=== PATIENT | female | born 1985 | race Caucasian/White ===

== ENCOUNTER → 2019-06-09 08:55 | Outpatient (CLI) | payer OTHER, SELFPAY ==
[2019-06-09 09:41] LABS: Add Manual Diff / Slide Review NO; Basophils Absolute Auto 100 /uL (0-100); Basophils Percent Auto 0.5 % (0-2); Eosinophils Absolute Auto 200 /uL (0-450); Eosinophils Percent Auto 2.5 % (2-4); Hematocrit 39.4 % (36-46); Hemoglobin 13.4 g/dL (12.0-16.0); Lymphocytes Absolute Auto 1800 /uL (1100-4500); Lymphocytes Percent Auto 18.4 % (25-40); Mean Corpuscular Hemoglobin 27.9 PG (26-34); Monocytes Absolute Auto 700 /uL (0-900); Monocytes Percent Auto 7.1 % (3-14); Neutrophils Absolute Auto 7000 /uL (1500-7000); Neutrophils Percent Auto 71.5 % (50-75); Platelet Count 319 X10^3/uL (150-400); Red Cell Distribution Width 13.4 % (11.6-14.8); White Blood Cell Count 9.8 X10^3/uL (4.5-11.0)
[2019-06-09 09:56] LABS: Appearance Urine UA CLEAR; Bilirubin Urine UA NEGATIVE (NEGATIVE); Color Urine UA YELLOW; Glucose Urine UA NEGATIVE (Negative); Ketones Urine UA NEGATIVE (NEGATIVE); Leukocyte Esterase Urine UA NEGATIVE (NEGATIVE); Nitrite Urine UA NEGATIVE (Negative); Occult Blood Urine UA 3+ (Negative); Protein Urine UA NEGATIVE (Negative); Specific Gravity Urine UA >=1.030 (1.000-1.035); Urobilinogen Urine UA 0.2 E.U./dL (0.2)
[2019-06-09 09:59] LABS: Alanine Aminotransferase 23 IU/L (<35); Albumin 4.9 g/dL (3.5-5.0); Albumin Globulin Ratio 1.4 (1.0-2.8); Alkaline Phosphatase 87 U/L (38-126); Aspartate Aminotransferase 23 IU/L (14-36); BUN Creatinine Ratio 28.8 (6-22); Bilirubin Total 0.3 mg/dL (0.2-1.3); Blood Urea Nitrogen 17 mg/dL (7-17); Calcium 9.8 mg/dL (8.4-10.2); Carbon Dioxide 23 mmol/L (22-32); Chloride 103 mmol/L (98-107); Estimated Glomerular Filt Rate > 60.0 mL/min (>60); Globulin 3.4 g/dL (1.7-4.1); Glucose 98 mg/dL (70-100); HEMOLYSIS < 15 (0-50); Potassium 4.2 mmol/L (3.4-5.1); Sodium 137 mmol/L (137-145); Total Protein 8.3 g/dL (6.3-8.2)
[2019-06-09 10:28] LABS: Cortisol AM (Before 10AM) 6.33 ug/dL (4.46-22.7)
[2019-06-09 10:40] LABS: Bacteria Urine Moderate (10-30); RBC Urine 1-5/HPF (0-5/HPF); Squamous Epithelial Cell Urine 1-5 /HPF (0-5/HPF); WBC Urine 1-5/HPF (0-5/HPF)
[2019-06-09 10:41] LABS: Culture Indicated Urine Cult Not Indicated
[2019-06-11 10:26] LABS: ANA Screen, IFA Negative (.)
== END ==
PROVIDERS: PCP Internal Medicine; Referring Provider Internal Medicine; Visit Provider Internal Medicine
DX: M32.9 Systemic lupus erythematosus, unspecified (principal)
CPT/HCPCS: 36415; 80053; 81001; 82533; 85025; 86038

== ENCOUNTER → 2019-06-12 09:17 | Outpatient (CLI) | payer OTHER, SELFPAY | PROVIDERS: PCP Internal Medicine; Referring Provider Internal Medicine; Visit Provider Internal Medicine | DX: M32.9 Systemic lupus erythematosus, unspecified (principal) | CPT/HCPCS: 36415; 82533 ==

== ENCOUNTER → 2019-06-13 09:21 | Outpatient (CLI) | payer OTHER, SELFPAY ==
[2019-06-13 11:59] LABS: Cortisol AM (Before 10AM) 0.97 ug/dL (4.46-22.7)
== END ==
PROVIDERS: PCP Internal Medicine; Referring Provider Internal Medicine; Visit Provider Internal Medicine
DX: M32.9 Systemic lupus erythematosus, unspecified (principal)
CPT/HCPCS: 36415; 82533

== ENCOUNTER → 2019-10-10 10:54 | Outpatient (CLI) | payer OTHER, SELFPAY ==
[2019-10-10 12:35] LABS: Add Manual Diff / Slide Review NO; Basophils Absolute Auto 0 /uL (0-100); Basophils Percent Auto 0.4 % (0-2); Eosinophils Absolute Auto 200 /uL (0-450); Eosinophils Percent Auto 1.8 % (2-4); Hematocrit 38.8 % (36-46); Lymphocytes Absolute Auto 1900 /uL (1100-4500); Lymphocytes Percent Auto 22.5 % (25-40); Mean Corpuscular HGB Conc 33.6 % (30-36); Mean Corpuscular Hemoglobin 27.3 PG (26-34); Mean Corpuscular Volume 81.4 fL (80-100); Monocytes Absolute Auto 700 /uL (0-900); Monocytes Percent Auto 7.8 % (3-14); Neutrophils Absolute Auto 5800 /uL (1500-7000); Neutrophils Percent Auto 67.5 % (50-75); Platelet Count 317 X10^3/uL (150-400); Red Blood Cell Count 4.76 X10^6/uL (4.0-5.2); Red Cell Distribution Width 13.5 % (11.6-14.8); White Blood Cell Count 8.6 X10^3/uL (4.5-11.0)
[2019-10-10 12:42] LABS: Appearance Urine UA SL CLOUDY; Bilirubin Urine UA NEGATIVE (NEGATIVE); Color Urine UA YELLOW; Glucose Urine UA NEGATIVE (Negative); Ketones Urine UA NEGATIVE (NEGATIVE); Leukocyte Esterase Urine UA NEGATIVE (NEGATIVE); Nitrite Urine UA NEGATIVE (Negative); Occult Blood Urine UA 1+ (Negative); Protein Urine UA NEGATIVE (Negative); Specific Gravity Urine UA 1.015 (1.000-1.035); Urobilinogen Urine UA 0.2 E.U./dL (0.2)
[2019-10-10 13:27] LABS: Amorphous Sediment Urine 1+; Bacteria Urine Moderate (10-30); Culture Indicated Urine Specimen Cultured; RBC Urine 1-5/HPF (0-5/HPF); Squamous Epithelial Cell Urine 1-5 /HPF (0-5/HPF); WBC Urine 5-10/HPF (0-5/HPF)
[2019-10-10 14:21] LABS: Alanine Aminotransferase 29 IU/L (<35); Albumin 4.5 g/dL (3.5-5.0); Albumin Globulin Ratio 1.5 (1.0-2.8); Alkaline Phosphatase 94 U/L (38-126); Aspartate Aminotransferase 25 IU/L (14-36); BUN Creatinine Ratio 22.8 (6-22); Bilirubin Total 0.5 mg/dL (0.2-1.3); Blood Urea Nitrogen 13 mg/dL (7-17); Calcium 9.5 mg/dL (8.4-10.2); Carbon Dioxide 24 mmol/L (22-32); Chloride 101 mmol/L (98-107); Cholesterol 246 mg/dL (140-199); Estimated Glomerular Filt Rate > 60.0 mL/min (>60); Globulin 3.1 g/dL (1.7-4.1); Glucose 86 mg/dL (70-100); HDL Cholesterol 42 mg/dL (40-60); HEMOLYSIS < 15 (0-50); LDL Cholesterol Calculated 153 mg/dL (<100); Potassium 4.6 mmol/L (3.4-5.1); Sodium 135 mmol/L (137-145); Total Protein 7.6 g/dL (6.3-8.2); Triglycerides 256 mg/dL (35-150)
[2019-10-11 07:12] LABS: Insulin Level Total 22.3 uIU/mL (2.6-24.9)
== END ==
PROVIDERS: PCP Internal Medicine; Referring Provider Internal Medicine; Visit Provider Internal Medicine
DX: Z00.00 Encounter for general adult medical examination without abnormal findings (principal); Z13.220 Encounter for screening for lipoid disorders; Z83.3 Family history of diabetes mellitus
CPT/HCPCS: 36415; 80053; 80061; 81001; 83525; 84443; 85025; 87086

== ENCOUNTER → 2019-12-30 12:56 | Outpatient (CLI) | payer OTHER, SELFPAY ==
[2019-12-30 15:01] LABS: Add Manual Diff / Slide Review NO; Basophils Absolute Auto 0 /uL (0-100); Basophils Percent Auto 0.4 % (0-2); Eosinophils Absolute Auto 200 /uL (0-450); Eosinophils Percent Auto 1.8 % (2-4); Hematocrit 37.8 % (36-46); Hemoglobin 12.5 g/dL (12.0-16.0); Lymphocytes Absolute Auto 1700 /uL (1100-4500); Lymphocytes Percent Auto 17.8 % (25-40); Mean Corpuscular Hemoglobin 26.7 PG (26-34); Mean Corpuscular Volume 81.1 fL (80-100); Monocytes Absolute Auto 700 /uL (0-900); Monocytes Percent Auto 7.3 % (3-14); Neutrophils Absolute Auto 6900 /uL (1500-7000); Neutrophils Percent Auto 72.7 % (50-75); Platelet Count 323 X10^3/uL (150-400); Red Blood Cell Count 4.66 X10^6/uL (4.0-5.2); Red Cell Distribution Width 13.6 % (11.6-14.8); White Blood Cell Count 9.5 X10^3/uL (4.5-11.0)
[2019-12-30 15:16] LABS: Alanine Aminotransferase 43 IU/L (<35); Albumin 4.3 g/dL (3.5-5.0); Albumin Globulin Ratio 1.3 (1.0-2.8); Alkaline Phosphatase 82 U/L (38-126); Aspartate Aminotransferase 34 IU/L (14-36); BUN Creatinine Ratio 23.6 (6-22); Bilirubin Total 0.4 mg/dL (0.2-1.3); Blood Urea Nitrogen 13 mg/dL (7-17); Carbon Dioxide 29 mmol/L (22-32); Chloride 100 mmol/L (98-107); Estimated Glomerular Filt Rate > 60.0 mL/min (>60); Globulin 3.3 g/dL (1.7-4.1); Glucose 88 mg/dL (70-100); HEMOLYSIS < 15 (0-50); Sodium 135 mmol/L (137-145); Total Protein 7.6 g/dL (6.3-8.2)
== END ==
PROVIDERS: PCP Internal Medicine; Referring Provider Physician Assistant; Visit Provider Physician Assistant
DX: Z01.812 Encounter for preprocedural laboratory examination (principal); R19.7 Diarrhea, unspecified
CPT/HCPCS: 36415; 80053; 85025

== ENCOUNTER → 2020-01-01 15:21 | Outpatient (CLI) | payer OTHER, SELFPAY ==
[2020-01-01 18:15] LABS: Adenovirus F 40/41 Not Detected (Not Detect); Astrovirus Not Detected (Not Detect); Clostridium difficile toxin AB Not Detected (Not Detect); Cryptosporidium Not Detected (Not Detect); Cyclospora cayetanensis Not Detected (Not Detect); Entamoeba histolytica Not Detected (Not Detect); Enteroaggregative E.coli Not Detected (Not Detect); Enteropathogenic E.coli Not Detected (Not Detect); Enterotoxigenic E.coli It/st Not Detected (Not Detect); Giardia lamblia Not Detected (Not Detect); Norovirus GI/GII Not Detected (Not Detect); Plesiomonsa shigelloides Not Detected (Not Detect); Rotavirus A Not Detected (Not Detect); Salmonella Not Detected (Not Detect); Sapovirus Not Detected (Not Detect); Shigella/Enteroinvasive E.coli Not Detected (Not Detect); Vibrio Not Detected (Not Detect); Vibrio cholerae Not Detected (Not Detect); Yersinia enterocolitica Not Detected (Not Detect)
[2020-01-02 09:06] LABS: Campylobacter Detected (Not Detect)
[2020-01-02 09:07] LABS: Shiga-like toxin-prod E.coli Detected (Not Detect)
== END ==
PROVIDERS: PCP Internal Medicine; Referring Provider Physician Assistant; Visit Provider Physician Assistant
DX: R19.7 Diarrhea, unspecified (principal)
CPT/HCPCS: 87507

== ENCOUNTER → 2021-01-28 13:44 | Outpatient (CLI) | payer OTHER, SELFPAY ==
[2021-01-28 14:09] LABS: COVID19 -Nasal RAPID Negative (Negative)
== END ==
PROVIDERS: PCP Registered Nurse; Visit Provider Physician Assistant
DX: Z20.822 Contact with and (suspected) exposure to COVID-19 (principal); R09.89 Other specified symptoms and signs involving the circulatory and respiratory systems
CPT/HCPCS: 87635

== ENCOUNTER → 2021-02-10 16:49 | Outpatient (CLI) | payer OTHER, SELFPAY ==
[2021-02-10 17:54] LABS: COVID19 -Nasal RAPID Negative (Negative)
== END ==
PROVIDERS: PCP Registered Nurse; Visit Provider Physician Assistant
DX: Z20.822 Contact with and (suspected) exposure to COVID-19 (principal); J02.9 Acute pharyngitis, unspecified
CPT/HCPCS: 87070; 87635

== ENCOUNTER 2022-01-29 20:09 | Emergency (ER) | payer OTHER, SELFPAY ==
[2022-01-29] VITALS (7 sets, daily range): BP systolic 116–130; BP diastolic 67–88; PULSE 74–82; RESP 22–38; TEMP 36.6; O2SAT 98–99; BMI 38.4
--- NOTE | 2022-01-29 20:30 | DI.RAD.S_ITS ---
PROCEDURE: XR CHEST 1V INDICATIONS: chest pain TECHNIQUE: One view of the chest was acquired. COMPARISON: None. FINDINGS: Surgical changes and devices: None. Lungs and pleura: Lungs are clear. No pleural effusions or pneumothorax. Mediastinum: Mediastinal contours appear normal. Heart size is normal. Bones and chest wall: No suspicious bony lesions. Overlying soft tissues appear unremarkable. IMPRESSION: No acute cardiopulmonary process demonstrated radiographically. Dictated by: Velasquez Dash M.D. on 01/29/2022 at 21:35 Approved by: Velasquez Dash M.D. on 01/29/2022 at 21:35
--- NOTE | 2022-01-29 20:31 | ED.CHESTPAIN ---
HPI - Chest Pain General Chief Complaint: Chest Pain Stated Complaint: Chest pain all day Time Seen by Provider: 01/29/22 20:14 History of Present Illness HPI narrative: 36-year-old female nonsmoker with history of anxiety and depression presents with her in the chief complaint of sharp and stabbing upper chest pain that has been present over the course of the day. She denies any recent trauma or injury. She is had no runny nose, sore throat or cough. She denies palpitations, fever or chills. She denies shortness of breath nor nausea, vomiting or diarrhea. She is had no exertional symptoms. She denies any radiation of her pain but states it seems to be worse when she takes a big deep breath or she moves. She denies recent travel, hemoptysis, history of blood clot. She admits that she is been under significant amount of stress lately and feels quite anxious. She is had no change in medications or diet. Related Data Home Medications Medication Instructions Recorded Confirmed propranolol 10 mg tablet 10 mg PO BID 07/10/19 02/10/21 venlafaxine 150 mg 150 mg PO QAM 07/10/19 02/10/21 capsule,extended release 24 hr (Effexor XR) albuterol sulfate 90 mcg/actuation 1 inh inhalation ONCE 03/26/20 02/10/21 aerosol inhaler (ProAir HFA) famotidine 20 mg tablet 20 mg PO BID 03/26/20 02/10/21 fluticasone propionate 110 1 puff inhalation BID 03/26/20 02/10/21 mcg/actuation HFA aerosol inhaler (Flovent HFA) dextroamphetamine-amphetamine 20 20 mg PO DAILY 01/28/21 02/10/21 mg tablet (Adderall) lamotrigine 100 mg tablet 100 mg PO DAILY 01/28/21 02/10/21 topiramate 15 mg sprinkle capsule 75 mg PO DAILY 01/28/21 02/10/21 Previous Rx's Medication Instructions Recorded benzonatate 100 mg capsule 100 mg PO BID-TID PRN cough #14 02/10/21 caps Allergies Allergy/AdvReac Type Severity Reaction Status Date / Time adhesive Allergy Intermediate caro, Verified 02/10/21 16:48 redness swelling bupropion [From Wellbutrin] AdvReac Intermediate Verified 02/10/21 16:48 Review of Systems Review of Systems Narrative: GENERAL: See HPI HEENT: Denies sinus pain, ear pain, sore throat, difficulty swallowing, dizziness. RESPIRATORY: Denies dyspnea, cough, wheezing, hemoptysis, sputum. CARDIOVASCULAR: D see HPI GASTROINTESTINAL: See HP : Denies dysuria, frequency, incontinence, hematuria, urinary retention. MUSCULOSKELETAL: denies weakness, joint pain, or bony pain SKIN: Denies rash, skin lesions, or other NEUROLOGIC: Denies weakness, headache, numbness, change in speech, confusion, seizures, incoordination. PSYCHIATRIC: No concerning psychosocial issues. 12 point review of systems is negative except for those stated above Patient History Social History Smoking Status: Never smoker Smoking Status: Never smoker Exam Narrative Exam Narrative: GENERAL: [36] year old patient appears stated age. Well-developed patient, in mild distress. HEAD: Atraumatic. Normocephalic. EYES: Pupils equal round and reactive. Extraocular motions intact. No scleral icterus. No injection or drainage. ENT: Nose without bleeding, purulent drainage. Throat without erythema, tonsillar hypertrophy or exudate. Airway patent. NECK: Trachea midline. Non tender CARDIOVASCULAR: Regular rate and rhythm without murmurs, gallops, or rubs. RESPIRATORY: Clear to auscultation. Breath sounds equal bilaterally. No wheezes, rales, or rhonchi. GASTROINTESTINAL: Abdomen soft, non-tender, nondistended. EXTREMITIES: No edema or joint tenderness. BACK: Nontender without deformity or crepitance. No flank tenderness. NEURO: AOx3. SKIN: No rash or erythema of visible areas Initial Vital Signs Initial Vital Signs: Vital Signs Pulse Rate 82 01/29/22 20:26 Respiratory Rate 38 H 01/29/22 20:26 Scores HEART Score Heart Score history: Slightly Suspicious Heart Score EKG: Normal Heart Score Age: < 45 years old Heart Score risk factors: No known risk factors Heart Score troponin: < or = to normal limit Heart Score Total: 0 Course Orders Ordered: ED Orders 01/29/22 20:49 COVID19 -Nasal RAPID/Pre-Proc Stat Discontinued Medications Aspirin (Aspirin 81 Mg Chew Tab) 324 mg PO NOW ONE Stop: 01/29/22 20:31 Last Admin: 01/29/22 21:46 Dose: Not Given Documented By: SB Vital Signs Vital signs: Vital Signs - 8 hr 01/29/22 22:00 01/29/22 22:01 01/29/22 22:01 Pulse Rate 75 74 Blood Pressure 116/69 Pulse Oximetry 98 98 MDM - Chest Pain Lab Data Result diagrams: 01/29/22 20:31 01/29/22 20:31 Labs: Lab Results 01/29/22 01/29/22 01/29/22 Range/Units 20:31 20:31 20:31 WBC 12.7 H (4.5-11.0) X10^3/uL RBC 4.69 (4.0-5.2) X10^6/uL Hgb 12.9 (12.0-16.0) g/dL Hct 37.7 (36-46) % MCV 80.6 (80-100) fL MCH 27.5 (26-34) PG MCHC 34.1 (30-36) % RDW 14.1 (11.6-14.8) % Plt Count 323 (150-400) X10^3/uL Neut % (Auto) 67.7 (50-75) % Lymph % (Auto) 20.2 L (25-40) % [place] % (Auto) 8.7 (3-14) % Eos % (Auto) 2.6 (2-4) % Baso % (Auto) 0.8 (0-2) % Neut # (Auto) 8600 H (0627-9899) /uL Lymph # (Auto) 2600 (5915-7791) /uL [place] # (Auto) 1100 H (0-900) /uL Eos # (Auto) 300 (0-450) /uL Baso # (Auto) 100 (0-100) /uL ESR (0-20) MM/HR PT 10.2 (10.1-12.7) SECONDS INR 0.9 (0.9-1.3) APTT 27 (26-36) SECONDS D-Dimer (<500) ng/ml Sodium 137 (137-145) mmol/L Potassium 3.9 (3.4-5.1) mmol/L Chloride 105 (98-107) mmol/L Carbon Dioxide 23 (22-32) mmol/L BUN 9 (7-17) mg/dL Creatinine 0.67 (0.52-1.04) mg/dL Estimated GFR > 60 (>60) mL/min BUN/Creatinine Ratio 13.4 (6-22) Glucose 97 (70-100) mg/dL Calcium 9.1 (8.4-10.2) mg/dL Magnesium 2.0 (1.6-2.3) mg/dL Total Bilirubin 0.2 (0.2-1.3) mg/dL AST 31 (14-36) IU/L ALT 39 H (<35) IU/L Alkaline Phosphatase 89 (38-126) U/L Total Creatine Kinase 56 (30-135) U/L CK-MB (CK-2) TNP CK-MB (CK-2) Rel Index TNP Troponin I < 0.012 (0.01-0.034) ng/mL C-Reactive Protein (<1.0) mg/dL Total Protein 7.6 (6.3-8.2) g/dL Albumin 4.3 (3.5-5.0) g/dL Globulin 3.3 (1.7-4.1) g/dL Albumin/Globulin Ratio 1.3 (1.0-2.8) Lipase 164 (23-300) U/L SARS-CoV-2 (PCR) (Negative) 01/29/22 01/29/22 01/29/22 Range/Units 20:31 20:31 20:31 WBC (4.5-11.0) X10^3/uL RBC (4.0-5.2) X10^6/uL Hgb (12.0-16.0) g/dL Hct (36-46) % MCV (80-100) fL MCH (26-34) PG MCHC (30-36) % RDW (11.6-14.8) % Plt Count (150-400) X10^3/uL Neut % (Auto) (50-75) % Lymph % (Auto) (25-40) % [place] % (Auto) (3-14) % Eos % (Auto) (2-4) % Baso % (Auto) (0-2) % Neut # (Auto) (8157-6950) /uL Lymph # (Auto) (5935-7985) /uL [place] # (Auto) (0-900) /uL Eos # (Auto) (0-450) /uL Baso # (Auto) (0-100) /uL ESR 16 (0-20) MM/HR PT (10.1-12.7) SECONDS INR (0.9-1.3) APTT (26-36) SECONDS D-Dimer 331 (<500) ng/ml Sodium (137-145) mmol/L Potassium (3.4-5.1) mmol/L Chloride (98-107) mmol/L Carbon Dioxide (22-32) mmol/L BUN (7-17) mg/dL Creatinine (0.52-1.04) mg/dL Estimated GFR (>60) mL/min BUN/Creatinine Ratio (6-22) Glucose (70-100) mg/dL Calcium (8.4-10.2) mg/dL Magnesium (1.6-2.3) mg/dL Total Bilirubin (0.2-1.3) mg/dL AST (14-36) IU/L ALT (<35) IU/L Alkaline Phosphatase (38-126) U/L Total Creatine Kinase (30-135) U/L CK-MB (CK-2) CK-MB (CK-2) Rel Index Troponin I (0.01-0.034) ng/mL C-Reactive Protein 1.7 H (<1.0) mg/dL Total Protein (6.3-8.2) g/dL Albumin (3.5-5.0) g/dL Globulin (1.7-4.1) g/dL Albumin/Globulin Ratio (1.0-2.8) Lipase (23-300) U/L SARS-CoV-2 (PCR) (Negative) 01/29/22 Range/Units 20:49 WBC (4.5-11.0) X10^3/uL RBC (4.0-5.2) X10^6/uL Hgb (12.0-16.0) g/dL Hct (36-46) % MCV (80-100) fL MCH (26-34) PG MCHC (30-36) % RDW (11.6-14.8) % Plt Count (150-400) X10^3/uL Neut % (Auto) (50-75) % Lymph % (Auto) (25-40) % [place] % (Auto) (3-14) % Eos % (Auto) (2-4) % Baso % (Auto) (0-2) % Neut # (Auto) (2588-2702) /uL Lymph # (Auto) (9125-9831) /uL [place] # (Auto) (0-900) /uL Eos # (Auto) (0-450) /uL Baso # (Auto) (0-100) /uL ESR (0-20) MM/HR PT (10.1-12.7) SECONDS INR (0.9-1.3) APTT (26-36) SECONDS D-Dimer (<500) ng/ml Sodium (137-145) mmol/L Potassium (3.4-5.1) mmol/L Chloride (98-107) mmol/L Carbon Dioxide (22-32) mmol/L BUN (7-17) mg/dL Creatinine (0.52-1.04) mg/dL Estimated GFR (>60) mL/min BUN/Creatinine Ratio (6-22) Glucose (70-100) mg/dL Calcium (8.4-10.2) mg/dL Magnesium (1.6-2.3) mg/dL Total Bilirubin (0.2-1.3) mg/dL AST (14-36) IU/L ALT (<35) IU/L Alkaline Phosphatase (38-126) U/L Total Creatine Kinase (30-135) U/L CK-MB (CK-2) CK-MB (CK-2) Rel Index Troponin I (0.01-0.034) ng/mL C-Reactive Protein (<1.0) mg/dL Total Protein (6.3-8.2) g/dL Albumin (3.5-5.0) g/dL Globulin (1.7-4.1) g/dL Albumin/Globulin Ratio (1.0-2.8) Lipase (23-300) U/L SARS-CoV-2 (PCR) Negative (Negative) Imaging Data Chest x-ray: Radiologist's Impression: Close Chest X-Ray (Signed) Velasquez Dash - 01/29/22 Launch?[address] [address] XRay Report Signed Patient: Blanca Camargo MR#: [id number] : 1985 Acct:[id number] Age/Sex: 36 / F Date of Service: 01/29/22 Loc: ED Accession Number: [id number] ?? Procedure: XR chest 1V Ordering Provider: Helder Grey D.O. PROCEDURE:? XR CHEST 1V ? INDICATIONS:? chest pain ? TECHNIQUE:? One view of the chest was acquired.? ? COMPARISON:? None. ? FINDINGS:? ? Surgical changes and devices:? None.? ? Lungs and pleura:? Lungs are clear.? No pleural effusions or pneumothorax.? ? Mediastinum:? Mediastinal contours appear normal.? Heart size is normal.? ? Bones and chest wall:? No suspicious bony lesions.? Overlying soft tissues appear unremarkable.? ? IMPRESSION:? No acute cardiopulmonary process demonstrated radiographically. ? ? Dictated by: Velasquez Dash M.D. on 01/29/2022 at 21:35 ? ? Approved by: Velasquez Dash M.D. on 01/29/2022 at 21:35 ? MDM Narrative Medical decision making narrative: 36-year-old female with asthma presents with sharp and stabbing pleuritic-type anterior chest pain over the course of the day Multiple etiologies for patient's symptoms considered including: [Pulmonary embolism, cardiac ischemia, pneumonia Cardiac ischemia considered, but thought unlikely as patient reports no radiation, no diaphoresis, no provocation with exertion, and no vomiting. EKGs are nonischemic, heart score is 0, troponin negative Patient's symptoms improved over duration of stay with above-stated therapies. Findings and discharge diagnosis discussed with patient/family followed by verbalization of understanding Return precautions discussed with patient/family whom verbalize understanding. Discharge Plan Departure Patient Disposition: Home Clinical Impression: Atypical chest pain Instructions: DI for Atypical Chest Pain Activity Restrictions/Additional Instructions: *You have been diagnosed with [ atypical chest pain. As we discussed, your history and physical exam as well as labs, EKG and imaging are reassuring. There is no evidence of a significant underlying medical problems such as blood clot, heart attack, pneumonia or other diagnosis which would require a specific or immediate intervention] *What to do: *Please continue to take your regular medications as directed. [ ] New medication prescriptions sent to your pharmacy: [ ] [ ] New medication written as a paper prescription [x ] No new medications given *Please follow up with your primary care provider in 2-3 days, call for an appointment. Let them know you were seen in the Emergency Department and that we ask that you be seen in follow up. We will electronically transmit a record of today's note if your PCP is in our system *If you do not have a primary care provider please contact the [facility] Resource line at [phone]. They will ask some questions about your medical history and help get you set up with a doctor in the community. *Return to Emergency Department if you should have any new, worsening or concerning symptoms, such as [fever greater than 101 F, shaking chills, worsening pain, persistent vomiting or other bothersome symptoms] Prescriptions: No Action venlafaxine [Effexor XR] 150 mg capsule,extended release 24hr 150 mg PO QAM propranolol 10 mg tablet 10 mg PO BID dextroamphetamine-amphetamine [Adderall] 20 mg tablet 20 mg PO DAILY lamotrigine 100 mg tablet 100 mg PO DAILY topiramate 15 mg capsule, sprinkle 75 mg PO DAILY benzonatate 100 mg capsule 100 mg PO BID-TID PRN (Reason: cough) Qty: 14 0RF famotidine 20 mg tablet 20 mg PO BID Flovent HFA 110 mcg/actuation HFA aerosol inhaler 1 puff inhalation BID albuterol sulfate [ProAir HFA] 90 mcg/actuation HFA aerosol inhaler 1 inh inhalation ONCE Referrals: Tova Cross ARNP [Primary Care Provider] - Visit Report Forms: Patient Portal/API
[2022-01-29 20:38] LABS: Add Manual Diff / Slide Review NO; Basophils Absolute Auto 100 /uL (0-100); Basophils Percent Auto 0.8 % (0-2); Eosinophils Absolute Auto 300 /uL (0-450); Eosinophils Percent Auto 2.6 % (2-4); Hematocrit 37.7 % (36-46); Hemoglobin 12.9 g/dL (12.0-16.0); Lymphocytes Absolute Auto 2600 /uL (1100-4500); Lymphocytes Percent Auto 20.2 % (25-40); Mean Corpuscular HGB Conc 34.1 % (30-36); Mean Corpuscular Hemoglobin 27.5 PG (26-34); Mean Corpuscular Volume 80.6 fL (80-100); Monocytes Absolute Auto 1100 /uL (0-900); Monocytes Percent Auto 8.7 % (3-14); Neutrophils Absolute Auto 8600 /uL (1500-7000); Neutrophils Percent Auto 67.7 % (50-75); Platelet Count 323 X10^3/uL (150-400); Red Blood Cell Count 4.69 X10^6/uL (4.0-5.2); Red Cell Distribution Width 14.1 % (11.6-14.8); White Blood Cell Count 12.7 X10^3/uL (4.5-11.0)
[2022-01-29 20:44] LABS: INR 0.9 (0.9-1.3); Prothrombin Time 10.2 SECONDS (10.1-12.7)
[2022-01-29 20:46] LABS: PTT Partial Thromboplastin Tim 27 SECONDS (26-36)
[2022-01-29 20:49] LABS: Alanine Aminotransferase 39 IU/L (<35); Albumin 4.3 g/dL (3.5-5.0); Albumin Globulin Ratio 1.3 (1.0-2.8); Alkaline Phosphatase 89 U/L (38-126); Aspartate Aminotransferase 31 IU/L (14-36); BUN Creatinine Ratio 13.4 (6-22); Bilirubin Total 0.2 mg/dL (0.2-1.3); Blood Urea Nitrogen 9 mg/dL (7-17); Calcium 9.1 mg/dL (8.4-10.2); Carbon Dioxide 23 mmol/L (22-32); Chloride 105 mmol/L (98-107); Creatine Kinase 56 U/L (30-135); Estimated Glomerular Filt Rate > 60 mL/min (>60); Globulin 3.3 g/dL (1.7-4.1); Glucose 97 mg/dL (70-100); HEMOLYSIS < 15 (0-50); Lipase 164 U/L (23-300); Potassium 3.9 mmol/L (3.4-5.1); Sodium 137 mmol/L (137-145); Total Protein 7.6 g/dL (6.3-8.2)
[2022-01-29 21:00] LABS: Troponin I < 0.012 ng/mL (0.01-0.034)
[2022-01-29 21:11] LABS: COVID19 -Nasal RAPID Negative (Negative)
[2022-01-29 21:49] LABS: D Dimer 331 ng/ml (<500)
[2022-01-29 21:54] LABS: C-Reactive Protein Quant 1.7 mg/dL (<1.0)
[2022-01-29 22:10] LABS: Erythrocyte Sedimentation Rate 16 MM/HR (0-20)
== END 2022-01-29 22:21 | disposition home or self-care (01) ==
PROVIDERS: Emergency Provider Emergency Medicine; PCP Nurse Practitioner
DX: R07.89 Other chest pain (principal); Z79.899 Other long term (current) drug therapy; Z20.822 Contact with and (suspected) exposure to COVID-19
CPT/HCPCS: 36415; 71045; 80053; 82550; 83690; 83735; 84484; 85025; 85379; 85610; 85651; 85730; 86140; 87635; 93005; 99284; C9803

== ENCOUNTER 2022-09-19 16:49 | Emergency (ER) | payer OTHER, SELFPAY ==
[2022-09-19] VITALS (10 sets, daily range): BP systolic 101–126; BP diastolic 67–83; PULSE 79–91; RESP 19; TEMP 37.1; O2SAT 97–99; BMI 38.9
[2022-09-19 18:31] LABS: BUN Creatinine Ratio 15.4 (6-22); Blood Urea Nitrogen 8 mg/dL (7-17); Carbon Dioxide 26 mmol/L (22-32); Chloride 102 mmol/L (98-107); Estimated Glomerular Filt Rate > 60 mL/min (>60); Glucose 73 mg/dL (70-100); HEMOLYSIS < 15 (0-50); Potassium 3.7 mmol/L (3.4-5.1); Sodium 137 mmol/L (137-145)
[2022-09-19 18:37] LABS: Pregnancy Test Serum,Qual Negative (Negative)
[2022-09-19 18:39] LABS: Add Manual Diff / Slide Review NO; Basophils Absolute Auto 100 /uL (0-100); Basophils Percent Auto 0.5 % (0-2); Eosinophils Absolute Auto 400 /uL (0-450); Eosinophils Percent Auto 3.4 % (2-4); Hematocrit 34.9 % (36-46); Hemoglobin 12.1 g/dL (12.0-16.0); Lymphocytes Absolute Auto 2200 /uL (1100-4500); Lymphocytes Percent Auto 20.7 % (25-40); Mean Corpuscular HGB Conc 34.8 % (30-36); Mean Corpuscular Volume 80.4 fL (80-100); Monocytes Absolute Auto 1100 /uL (0-900); Monocytes Percent Auto 10.3 % (3-14); Neutrophils Absolute Auto 7000 /uL (1500-7000); Neutrophils Percent Auto 65.1 % (50-75); Platelet Count 338 X10^3/uL (150-400); Red Blood Cell Count 4.34 X10^6/uL (4.0-5.2); Red Cell Distribution Width 13.5 % (11.6-14.8); White Blood Cell Count 10.7 X10^3/uL (4.5-11.0)
--- NOTE | 2022-09-19 20:20 | ED.GENADULT ---
HPI - General Adult General Chief complaint: Vaginal Bleeding Stated complaint: excessive vag bleeding x 8 weeks, sent by [facility] Time Seen by Provider: 09/19/22 20:20 Source: patient Mode of arrival: Family Vehicle History of Present Illness HPI narrative: 37-year-old woman typically with very regular menses lasting 5 days fairly light last normal menstrual menses was in May, no bleeding in June and on July 28 began having bleeding that has been continuous until today. There is days where it is notable and days with significant volumes of clots. Today she is having multiple clots and cramping slightly dizzy comes in for further evaluation. She did have a recent well-woman exam with normal Pap smear. She is complained of no vaginal discharge there has been no change to medications. Related Data Home Medications Medication Instructions Recorded Confirmed propranolol 10 mg tablet 10 mg PO BID 07/10/19 02/10/21 venlafaxine 150 mg 150 mg PO QAM 07/10/19 02/10/21 capsule,extended release 24 hr (Effexor XR) albuterol sulfate 90 mcg/actuation 1 inh inhalation ONCE 03/26/20 02/10/21 aerosol inhaler (ProAir HFA) famotidine 20 mg tablet 20 mg PO BID 03/26/20 02/10/21 fluticasone propionate 110 1 puff inhalation BID 03/26/20 02/10/21 mcg/actuation HFA aerosol inhaler (Flovent HFA) dextroamphetamine-amphetamine 20 20 mg PO DAILY 01/28/21 02/10/21 mg tablet (Adderall) lamotrigine 100 mg tablet 100 mg PO DAILY 01/28/21 02/10/21 topiramate 15 mg sprinkle capsule 75 mg PO DAILY 01/28/21 02/10/21 Previous Rx's Medication Instructions Recorded benzonatate 100 mg capsule 100 mg PO BID-TID PRN cough #14 02/10/21 caps medroxyprogesterone 10 mg tablet See Rx Instructions .Route 09/19/22 .COMPLEX #82 tabs Allergies Allergy/AdvReac Type Severity Reaction Status Date / Time adhesive Allergy Intermediate caro, Verified 09/19/22 17:20 redness swelling bupropion [From Wellbutrin] AdvReac Intermediate Verified 09/19/22 17:20 Review of Systems Review of Systems Narrative: Pertinent positive and negative findings as per HPI Patient History Social History Smoking Status: Never smoker Smoking Status: Never smoker alcohol intake frequency: holidays/special occasions only Substance Use Type: does not use Exam Initial Vital Signs Initial Vital Signs: Vital Signs Temperature 98.7 F 09/19/22 17:15 Pulse Rate 82 09/19/22 17:15 Respiratory Rate 19 09/19/22 17:15 Blood Pressure 124/79 09/19/22 17:15 Pulse Oximetry 98 09/19/22 17:15 Oxygen Delivery Method Room Air 09/19/22 17:15 General: Healthy appearing, in no acute distress. Able to give a complete and coherent history. Well-nourished well-developed HEENT: Moist mucous membranes, normal sclera with reactive pupils, Respiratory: Lungs are clear to auscultation, no wheezing no rales no rhonchi. Full and symmetrical air movement Cardiac: Regular rate and rhythm no murmurs no bruits Abdomen: Soft, mild low pelvic cramping without rebound or guarding good bowel tones, no flank pain Skin: Warm and dry, no rashes Neurologic: Grossly neurologically intact with no obvious asymmetries or abnormalities Extremities: No trauma, well perfused Psych: Cooperative, appropriate insight and affect Course Orders Ordered: ED Orders 09/19/22 18:01 Basic Metabolic Panel Stat Complete Blood Count AUTO DIFF Stat FSH [Follicle Stimulating Hormone] Stat Test Serum,Qual Stat Type and Screen Stat 09/19/22 20:32 US pelvic complete Stat Discontinued Medications Sodium Chloride (Normal Saline 0.9%) 1,000 mls @ 1,000 mls/hr IV BOLUS ONE Stop: 09/19/22 21:32 Last Infusion: 09/19/22 22:01 Dose: 0 mls/hr Documented By: Admin: 09/19/22 20:43 Dose: 1,000 mls/hr Documented By: RUBIN Ketorolac Tromethamine (Ketorolac 30 Mg/Ml Vial) 15 mg IV NOW ONE Stop: 09/19/22 20:34 Last Admin: 09/19/22 20:42 Dose: 15 mg Documented By: RUBIN Medroxyprogesterone Acetate (Medroxyprogesterone Acetate 10 Mg Tablet) 20 mg PO NOW ONE Stop: 09/19/22 20:34 Last Admin: 09/19/22 20:55 Dose: 20 mg Documented By: RUBIN Vital Signs Vital signs: Vital Signs - 8 hr 09/19/22 17:15 09/19/22 18:44 09/19/22 19:00 Temperature 98.7 F Pulse Rate 82 80 79 Respiratory Rate 19 Blood Pressure 124/79 119/71 Pulse Oximetry 98 97 97 Oxygen Delivery Method Room Air 09/19/22 19:30 09/19/22 19:34 09/19/22 19:34 Temperature Pulse Rate 84 81 Respiratory Rate Blood Pressure 101/69 Pulse Oximetry 98 97 Oxygen Delivery Method Medical Decision Making Lab Data 09/19/22 18:01 09/19/22 18:01 Labs: Lab Results 09/19/22 09/19/22 09/19/22 Range/Units 18:01 18:01 18:01 WBC 10.7 (4.5-11.0) X10^3/uL RBC 4.34 (4.0-5.2) X10^6/uL Hgb 12.1 (12.0-16.0) g/dL Hct 34.9 L (36-46) % MCV 80.4 (80-100) fL MCH 28.0 (26-34) PG MCHC 34.8 (30-36) % RDW 13.5 (11.6-14.8) % Plt Count 338 (150-400) X10^3/uL Neut % (Auto) 65.1 (50-75) % Lymph % (Auto) 20.7 L (25-40) % [place] % (Auto) 10.3 (3-14) % Eos % (Auto) 3.4 (2-4) % Baso % (Auto) 0.5 (0-2) % Neut # (Auto) 7000 (3206-4059) /uL Lymph # (Auto) 2200 (4443-3345) /uL [place] # (Auto) 1100 H (0-900) /uL Eos # (Auto) 400 (0-450) /uL Baso # (Auto) 100 (0-100) /uL Sodium 137 (137-145) mmol/L Potassium 3.7 (3.4-5.1) mmol/L Chloride 102 (98-107) mmol/L Carbon Dioxide 26 (22-32) mmol/L BUN 8 (7-17) mg/dL Creatinine 0.52 (0.52-1.04) mg/dL Estimated GFR > 60 (>60) mL/min BUN/Creatinine Ratio 15.4 (6-22) Glucose 73 (70-100) mg/dL Calcium 9.0 (8.4-10.2) mg/dL FSH mIU/mL Serum , Qual (Negative) Blood Type B Positive Antibody Screen Negative 09/19/22 09/19/22 Range/Units 18:01 18:01 WBC (4.5-11.0) X10^3/uL RBC (4.0-5.2) X10^6/uL Hgb (12.0-16.0) g/dL Hct (36-46) % MCV (80-100) fL MCH (26-34) PG MCHC (30-36) % RDW (11.6-14.8) % Plt Count (150-400) X10^3/uL Neut % (Auto) (50-75) % Lymph % (Auto) (25-40) % [place] % (Auto) (3-14) % Eos % (Auto) (2-4) % Baso % (Auto) (0-2) % Neut # (Auto) (1730-2893) /uL Lymph # (Auto) (1066-5540) /uL [place] # (Auto) (0-900) /uL Eos # (Auto) (0-450) /uL Baso # (Auto) (0-100) /uL Sodium (137-145) mmol/L Potassium (3.4-5.1) mmol/L Chloride (98-107) mmol/L Carbon Dioxide (22-32) mmol/L BUN (7-17) mg/dL Creatinine (0.52-1.04) mg/dL Estimated GFR (>60) mL/min BUN/Creatinine Ratio (6-22) Glucose (70-100) mg/dL Calcium (8.4-10.2) mg/dL FSH 1.79 mIU/mL Serum , Qual Negative (Negative) Blood Type Antibody Screen MDM Narrative Medical decision making narrative: CC: Vaginal bleeding, acute issue uncertain prognosis Complicating co-morbidities: Data collected from: patient, Social determinants of health that may influence the patients condition: Medical records reviewed: Differential considered: Perimenopausal bleeding, endometrial polyp, uterine fibroid causing worsening bleeding. She is not , no concern for pelvic inflammatory disease, recent Pap smear so cervical cancer less likely, endometrial cancer remains within the differential Exam documented above, pertinent findings include: Exam is benign, she has some mild low pelvic cramping on external exam, do the volume of blood pelvic exam is deferred Lab Test results independently reviewed as above. Pertinent findings: CBC shows no leukocytosis. H and H is stable at 12.1 and 34.9. Chemistries are reassuring Urine and serum levels are negative Imaging studies independently reviewed: Consultations: Treatments: Fluids, Toradol, 20mg PO q2 until bleeding stops or slows Then 20mg q4 x48 Then 20mg q6 x48 Then 20mg q8 x48 Then 20mg q12 x 48 Then 20mg qday x 7days see instructions Re-evaluations: Discussion: Discharge Plan Departure Patient Disposition: Home Clinical Impression: Endometrial hyperplasia, Dysfunctional uterine bleeding Instructions: DI for Vaginal Bleeding Activity Restrictions/Additional Instructions: Thank you for coming in today Based on your ultrasound, the lining of your uterus is quite thick which is why you are bleeding. We are going to use progesterone to see if we can help stabilize that lining and then have your body clean everything out at 1 time. Please follow the instructions for the progesterone. When you stop the progesterone do expect to have a moderately heavy menstrual cycle. 20mg PO q2 until bleeding stops or slows Then 20mg q4 x48 Then 20mg q6 x48 Then 20mg q8 x48 Then 20mg q12 x 48 Then 20mg qday x 7days You do need to follow-up with an county sheriff If you find that you are getting worse or develop any new symptoms, please feel free to return to the emergency department for further evaluation. Prescriptions: New medroxyprogesterone 10 mg tablet See Rx Instructions .ROUTE .COMPLEX Qty: 82 0RF Rx Instructions: 20 mg orally ;20mg PO q2 until bleeding stops or slows Then 20mg q4 [id number] 20mg q6 [id number] 20mg q8 [id number] 20mg q12 x 48 Then 20mg qday x 7days No Action venlafaxine [Effexor XR] 150 mg capsule,extended release 24hr 150 mg PO QAM propranolol 10 mg tablet 10 mg PO BID dextroamphetamine-amphetamine [Adderall] 20 mg tablet 20 mg PO DAILY lamotrigine 100 mg tablet 100 mg PO DAILY topiramate 15 mg capsule, sprinkle 75 mg PO DAILY benzonatate 100 mg capsule 100 mg PO BID-TID PRN (Reason: cough) Qty: 14 0RF famotidine 20 mg tablet 20 mg PO BID Flovent HFA 110 mcg/actuation HFA aerosol inhaler 1 puff inhalation BID albuterol sulfate [ProAir HFA] 90 mcg/actuation HFA aerosol inhaler 1 inh inhalation ONCE Referrals: Tova Cross ARNP [Primary Care Provider] - Stand Alone Forms: Patient Portal/API
--- NOTE | 2022-09-19 20:32 | DI.US.S_ITS ---
PROCEDURE: US PELVIC COMPLETE INDICATIONS: HEAVY BLEEDING X 8 WEEKS TECHNIQUE: Real-time scanning was performed of the pelvic organs, with image documentation. Additional endovaginal scanning was necessary due to incomplete visualization of the adnexal and endometrial structures by transabdominal scanning. COMPARISON: [facility], CT, CT ABDOMEN PELVIS WITH CONTRAST, 06/16/2022, 12:03. FINDINGS: Uterus: Uterus is anteverted and measures 8.7 x 3.9 x 4.9 cm. Endometrium measures up to 1.5 cm. No associated increased vascularity within the endometrium on color Doppler interrogation. There is a prominent both in cyst measuring up to 1.1 cm. Ovaries: The right ovary measures 3.3 x 4.2 x 3.0 cm, with a calculated ovarian volume of 21.9 cc. The left ovary measures 2.2 x 2.3 x 1.2 cm, with a calculated ovarian volume of 3.0 cc. The ovaries have a normal sonographic appearance. Less than 12 follicles can be seen in each ovary. No adnexal masses are seen. There is a thin walled anechoic simple cyst within the right ovary measuring up to 3.6 cm. Other: No pathologic free abdominal or pelvic fluid. IMPRESSION: 1. Mild thickening of the endometrium at the upper limits of normal for age. 2. Simple appearing right ovarian cyst measuring up to 3.6 cm. Consider a follow-up ultrasound in 6 weeks to demonstrate resolution. We strive to produce accurate, complete, and clear reports of imaging services. To assist us in improving patient care, this report was composed using standard report templates and voice recognition software. Therefore, it may contain abnormal punctuation, insertions and/or omissions. Occasional wrong-word or sound-alike substitutions may occur. Though we review the report and make efforts to correct it, we do recommend that the report be read carefully in proper context to recognize any text inaccuracies. Dictated by: Mauricio Camp M.D. on 09/19/2022 at 23:30 Approved by: Mauricio Camp M.D. on 09/19/2022 at 23:33
[2022-09-19] MEDS: KETOROLAC 30 MG/ML VIAL 15 MG IV (20:42)
[2022-09-19] MEDS: SODIUM CHLORIDE 0.9% 1,000 ML 1000 ML IV (20:43)
[2022-09-19] MEDS: MEDROXYPROGESTERONE ACETATE 10 MG TABLET 20 MG PO (20:55)
[2022-09-19 21:08] LABS: Follicle Stimulating Hormone 1.79 mIU/mL
== END 2022-09-19 22:21 | disposition home or self-care (01) ==
PROVIDERS: Emergency Medicine; Emergency Provider Emergency Medicine; PCP Nurse Practitioner
DX: N85.00 Endometrial hyperplasia, unspecified (principal); N93.8 Other specified abnormal uterine and vaginal bleeding
CPT/HCPCS: 36415; 76830; 76856; 80048; 83001; 84703; 85025; 86850; 86900; 86901; 96361; 96374; 99284; J1885

== ENCOUNTER → 2022-10-11 10:41 | Outpatient (CLI) | payer OTHER, SELFPAY ==
--- NOTE | 2022-10-11 10:42 | DI.RAD.S_ITS ---
PROCEDURE: XR FOOT RT MIN 3V INDICATIONS: 2x toe injuries TECHNIQUE: 3 views of the foot were acquired. COMPARISON: None. FINDINGS: Bones: No fractures or dislocations. No suspicious bony lesions. Small plantar calcaneal spur present. Linear lucency through the 1st distal phalanx without displacement. Soft tissues: No tibiotalar joint effusion. Achilles tendon appears normal. IMPRESSION: 1st distal phalangeal fracture, probably subacute. No displacement. Approved by: Baldomero Marcano M.D. on 10/11/2022 at 13:46
== END ==
PROVIDERS: PCP Nurse Practitioner; Referring Provider Nurse Practitioner Family; Visit Provider Nurse Practitioner Family
DX: S92.424A Nondisplaced fracture of distal phalanx of right great toe, initial encounter for closed fracture (principal); S99.929A Unspecified injury of unspecified foot, initial encounter; X58.XXXA Exposure to other specified factors, initial encounter
CPT/HCPCS: 73630

== ENCOUNTER 2023-04-18 10:35 | Emergency (ER) | payer OTHER, SELFPAY ==
[2023-04-18 10:39] VITALS: BP 117/70; PULSE 78; RESP 14; TEMP 36.5; O2SAT 99; BMI 39.4
--- NOTE | 2023-04-18 11:35 | DI.RAD.S_ITS ---
PROCEDURE: XR LUMBAR SPINE 2-3V INDICATIONS: back pain, no injury, midline tenderness TECHNIQUE: 3 views of the lumbar spine were acquired. COMPARISON: None. FINDINGS: Bones: 5 [id number] vertebrae are present. There is normal bony alignment. No vertebral body compression fractures. No suspicious bony lesions. Soft tissues: Overlying bowel gas pattern is normal. No suspicious soft tissue calcifications. IMPRESSION: No acute fracture. No osseous lesion. If symptoms and/or clinical suspicion for pathology persist, further assessment with repeat, or advanced imaging (e.g., CT, MRI, or bone scan) may be helpful for further assessment. Dictated by: Desean Saldana M.D. on 04/18/2023 at 12:49 Approved by: Desean Saldana M.D. on 04/18/2023 at 12:49
--- NOTE | 2023-04-18 11:35 | DI.RAD.S_ITS ---
PROCEDURE: XR THORACIC SPINE 3V INDICATIONS: back pain with midline tenderness, no injury TECHNIQUE: 3 views of the thoracic spine were acquired. COMPARISON: None. FINDINGS: Bones: No fractures or dislocations. No suspicious bony lesions. Visualized ribs are intact. Soft tissues: No paravertebral stripe thickening. IMPRESSION: No acute fracture. No osseous lesion. If symptoms and/or clinical suspicion for pathology persist, further assessment with repeat, or advanced imaging (e.g., CT, MRI, or bone scan) may be helpful for further assessment. Dictated by: Desean Saldana M.D. on 04/18/2023 at 12:49 Approved by: Desean Saldana M.D. on 04/18/2023 at 12:50
--- NOTE | 2023-04-18 11:39 | ED_ITS ---
HPI - Back Pain/Injury <Paola Castano PA-C - Last Filed: 04/18/23 14:04> General Chief Complaint: Back Pain/Injury Stated Complaint: chronic back apin numbness in rt hand and thigh Time Seen by Provider: 04/18/23 11:24 Source: patient History of Present Illness HPI Narrative: Patient is a 37-year-old female with a history of anxiety and depression who presents with acute low back pain. She reports a history of back pain that has been managed at home and with the chiropractor but this is worse. This has been going on for 9 days. There was no preceding injury or insult. Pain started in her right low back and has worsened to include sharp pain that radiates through her buttock and down the back of her leg and over her anterior thigh. She also has pain in her neck, right greater than left. The neck pain started after the low back pain. She has experienced numbness in her right fingers 3 through 5 over the past several days. The back pain is constant with acute flares. Walking is painful. She has gone to the chiropractor 5 times and had 2 massages without any improvement. She has also tried using a tens unit. She has used naproxen without any improvement. She denies loss of control of bowel or bladder, saddle anesthesia or weakness. She has had no fever and denies IV drug use. Related Data Home Medications Medication Instructions Recorded Confirmed propranolol 10 mg tablet 10 mg PO BID 07/10/19 10/11/22 venlafaxine 150 mg 150 mg PO QAM 07/10/19 10/11/22 capsule,extended release 24 hr (Effexor XR) albuterol sulfate 90 mcg/actuation 1 inh inhalation ONCE 03/26/20 10/11/22 aerosol inhaler (ProAir HFA) famotidine 20 mg tablet 20 mg PO BID 03/26/20 10/11/22 fluticasone propionate 110 1 puff inhalation BID 03/26/20 10/11/22 mcg/actuation HFA aerosol inhaler (Flovent HFA) dextroamphetamine-amphetamine 20 20 mg PO DAILY 01/28/21 10/11/22 mg tablet (Adderall) lamotrigine 100 mg tablet 100 mg PO DAILY 01/28/21 10/11/22 topiramate 15 mg sprinkle capsule 75 mg PO DAILY 01/28/21 10/11/22 naproxen sodium 220 mg capsule 220 mg PO Q12H PRN Back Pain 04/18/23 04/18/23 ([place]) Previous Rx's Medication Instructions Recorded benzonatate 100 mg capsule 100 mg PO BID-TID PRN cough #14 02/10/21 caps medroxyprogesterone 10 mg tablet See Rx Instructions .Route 09/19/22 .COMPLEX #82 tabs methocarbamol 500 mg tablet 1,000 mg (2 x 500 mg) PO TID PRN 04/18/23 back spasm #14 tabs prednisone 20 mg tablet 40 mg (2 x 20 mg) PO DAILY #8 tabs 04/18/23 Allergies Allergy/AdvReac Type Severity Reaction Status Date / Time adhesive Allergy Intermediate welts, Verified 04/18/23 10:45 redness swelling bupropion [From Wellbutrin] AdvReac Intermediate Verified 04/18/23 10:45 Review of Systems <Paola Castano PA-C - Last Filed: 04/18/23 14:04> Review of Systems ROS Unobtainable: All systems reviewed & are unremarkable except as noted in HPI and below Patient History <Paola Castano PA-C - Last Filed: 04/18/23 14:04> Social History Smoking Status: Never smoker Smoking Status: Never smoker alcohol intake frequency: holidays/special occasions only Substance Use Type: does not use Exam <Paola Castano PA-C - Last Filed: 04/18/23 14:04> Narrative Exam Narrative: GENERAL: 37 year old patient appears stated age. Well-developed patient, in moderate distress. NEURO: AOx3. HEAD: Atraumatic. Normocephalic. EYES: Pupils equal round and reactive. Extraocular motions intact. No scleral icterus. No injection or drainage. ENT: Nose without bleeding or purulent drainage. Airway patent. RESPIRATORY: No increased work of breathing EXTREMITIES: No edema or joint tenderness. SPINE: Midline tenderness over the low thoracic spine upper lumbar spine no cervical spine midline tenderness. Tenderness over the right cervical paraspinals. 5/5 strength in the legs. SKIN: No rash or erythema of visible areas Initial Vital Signs Initial Vital Signs: Vital Signs Temperature 97.7 F 04/18/23 10:39 Pulse Rate 78 04/18/23 10:39 Respiratory Rate 14 04/18/23 10:39 Blood Pressure 117/70 04/18/23 10:39 Pulse Oximetry 99 04/18/23 10:39 Oxygen Delivery Method Room Air 04/18/23 10:39 <Liana Alexander MD - Last Filed: 04/18/23 18:52> Initial Vital Signs Initial Vital Signs: Vital Signs Temperature 97.7 F 04/18/23 10:39 Pulse Rate 78 04/18/23 10:39 Respiratory Rate 14 04/18/23 10:39 Blood Pressure 117/70 04/18/23 10:39 Pulse Oximetry 99 04/18/23 10:39 Oxygen Delivery Method Room Air 04/18/23 10:39 Course <Paola Castano PA-C - Last Filed: 04/18/23 14:04> Orders Ordered: ED Orders 04/18/23 11:35 XR lumbar spine 2-3V Stat XR thoracic spine 3V Stat Discontinued Medications Ketorolac Tromethamine (Ketorolac 30 Mg/Ml Vial) 30 mg IM NOW ONE Stop: 04/18/23 11:37 Last Admin: 04/18/23 11:46 Dose: 30 mg Documented By: FRAN Prednisone (Prednisone 20 Mg Tablet) 40 mg PO NOW ONE Stop: 04/18/23 11:37 Last Admin: 04/18/23 11:46 Dose: 40 mg Documented By: FRAN Vital Signs Vital signs: Vital Signs - 8 hr 04/18/23 13:11 Temperature 97.8 F Pulse Rate 74 Respiratory Rate 18 Blood Pressure 114/61 Pulse Oximetry 99 Oxygen Delivery Method Room Air <Liana Alexander MD - Last Filed: 04/18/23 18:52> Orders Ordered: ED Orders 04/18/23 11:35 XR lumbar spine 2-3V Stat XR thoracic spine 3V Stat Discontinued Medications Ketorolac Tromethamine (Ketorolac 30 Mg/Ml Vial) 30 mg IM NOW ONE Stop: 04/18/23 11:37 Last Admin: 04/18/23 11:46 Dose: 30 mg Documented By: FRAN Prednisone (Prednisone 20 Mg Tablet) 40 mg PO NOW ONE Stop: 04/18/23 11:37 Last Admin: 04/18/23 11:46 Dose: 40 mg Documented By: FRAN Vital Signs Vital signs: Vital Signs - 8 hr 04/18/23 13:11 Temperature 97.8 F Pulse Rate 74 Respiratory Rate 18 Blood Pressure 114/61 Pulse Oximetry 99 Oxygen Delivery Method Room Air MDM - Back Pain/Injury <Paola Castano PA-C - Last Filed: 04/18/23 14:04> MDM Narrative Medical decision making narrative: Multiple etiologies for patient's symptoms considered including, but not limited to: Acute low muscular back pain, cauda equina, spinal epidural abscess, spinal hematoma, fracture, disc injury Patient without any red flags for emergent diagnoses such as cauda equina, epidural abscess or hematoma; suspect muscular low back pain with sciatica. Suspect the neck pain is also muscular, related to alteration in her walking and sleeping habits due to pain. The numbness in her fingers is consistent with a pinched nerve. She does have midline tenderness over the low thoracic and upper lumbar spine without history of injury but we will obtain x-rays today. We will treat pain in the emergency room with IM Toradol and oral prednisone. X-rays without acute bony abnormality. Patient is feeling better on reassessment after Toradol and prednisone. Patient prescribed muscle relaxers and a short course of prednisone for home. Encouraged to hold off on further chiropractic treatments for the time being as these do not seem to be helping and may in fact be aggravating her condition. Given education handout on st retching, ice,activity. Return precautions advised. Patient's symptoms improved over duration of stay with above-stated therapies. Findings and discharge diagnosis discussed with patient/family followed by verbalization of understanding Return precautions discussed with patient/family whom verbalize understanding of diagnosis and plan Discharge Plan Departure Patient Disposition: Home Clinical Impression: Acute low back pain with sciatica Qualifiers: Back pain laterality: bilateral Sciatica laterality: sciatica of right side Qualified Code(s): M54.41 - Lumbago with sciatica, right side Instructions: DI for Back Pain With Sciatica Activity Restrictions/Additional Instructions: *You have been diagnosed with low back pain with sciatica. Your x-rays did not show any abnormality. This means that your pain is likely coming from the soft tissues and nerves in your back. We gave you a intramuscular dose of NSAID in the emergency room for pain so please do not take any other NSAIDs for at least 12 hours. We also gave you your 1st dose of steroid medication which can help decrease the pain and inflammation around the sciatic nerve. I will send several more doses to your pharmacy. Please start taking these tomorrow. I have also prescribed a short course of muscle relaxers which can be used to alleviate some of the spasm with your back pain. They can make you quite sleepy so I would advise taking her 1st dose at nighttime. Do not combine with alcohol or other sedative medications. They can cause some dry mouth and constipation. I have also provided some exercises and stretching to do to help with your back pain. Since the chiropractor did not seem to be helping and maybe in fact was worsening your back pain, I would suggest not going in the immediate future and letting your back recover without intervention. If you develop any weakness in your lower extremities, loss of bowel or bladder control or numbness in your groin, please return to the emergency department. *What to do: *Please continue to take your regular medications as directed. [x] New medication prescriptions sent to your pharmacy: [ ] [ ] New medication written as a paper prescription [ ] No new medications given *Please follow up with your primary care provider in 2-3 days, call for an appointment. Let them know you were seen in the Emergency Department and that we ask that you be seen in follow up. We will electronically transmit a record of today's note if your PCP is in our system *If you do not have a primary care provider please contact the [facility] Resource line at [phone]. They will ask some questions about your medical history and help get you set up with a doctor in the community. *Return to Emergency Department if you should have any new, worsening or concerning symptoms, such as [fever greater than 101 F, shaking chills, worsening pain, persistent vomiting or other concerning symptoms]. Prescriptions: New prednisone 20 mg tablet 40 mg PO DAILY Qty: 8 0RF methocarbamol 500 mg tablet 1,000 mg PO TID PRN (Reason: back spasm) Qty: 14 0RF No Action venlafaxine [Effexor XR] 150 mg capsule,extended release 24hr 150 mg PO QAM propranolol 10 mg tablet 10 mg PO BID dextroamphetamine-amphetamine [Adderall] 20 mg tablet 20 mg PO DAILY lamotrigine 100 mg tablet 100 mg PO DAILY topiramate 15 mg capsule, sprinkle 75 mg PO DAILY benzonatate 100 mg capsule 100 mg PO BID-TID PRN (Reason: cough) Qty: 14 0RF famotidine 20 mg tablet 20 mg PO BID Flovent HFA 110 mcg/actuation HFA aerosol inhaler 1 puff inhalation BID albuterol sulfate [ProAir HFA] 90 mcg/actuation HFA aerosol inhaler 1 inh inhalation ONCE medroxyprogesterone 10 mg tablet See Rx Instructions .ROUTE .COMPLEX Qty: 82 0RF Rx Instructions: 20 mg orally ;20mg PO q2 until bleeding stops or slows Then 20mg q4 [id number] 20mg q6 [id number] 20mg q8 [id number] 20mg q12 x 48 Then 20mg qday x 7days naproxen sodium [Aleve] 220 mg Capsule 220 mg PO Q12H PRN (Reason: Back Pain) Referrals: Tova Cross ARNP [Primary Care Provider] - Stand Alone Forms: Patient Portal/API ED Sign-out <Liana Alexander MD - Last Filed: 04/18/23 18:52> Cosign ED Attending Cosdarellature Attestation: I was immediately available in the department for consultation throughout this patient's visit. Liana Alexander MD
[2023-04-18] MEDS: predniSONE 20 MG TABLET 40 MG PO (11:46)
[2023-04-18] MEDS: KETOROLAC 30 MG/ML VIAL IM (11:46)
[2023-04-18 13:11] VITALS: BP 114/61; PULSE 74; RESP 18; TEMP 36.6; O2SAT 99
== END 2023-04-18 13:28 | disposition home or self-care (01) ==
PROVIDERS: Emergency Provider Physician Assistant; PCP Nurse Practitioner
DX: M54.41 Lumbago with sciatica, right side (principal)
CPT/HCPCS: 72072; 72100; 96372; 99283; 99284; J1885